=== PATIENT | male | born 1940 | race Caucasian/White ===

== ENCOUNTER 2017-07-20 08:59 | Emergency (ER) | payer MEDICARE ==
[~2017-07-20] VITALS: Ht 182.9 cm; Wt 93.0 kg
[2017-07-20 09:08] VITALS: BP 142/73; PULSE 89; RESP 16; TEMP 98.1; O2SAT 98
--- NOTE | 2017-07-20 09:31 | PD ---
HPI Chief Complaint: Complaint Time Seen by Provider: 09:14 Travel History International Travel<30 days: No Contact w/Intl Traveler<30days: No Traveled to known affect area: No History of Present Illness HPI Patient is a 77-year-old male with a history of prostate cancer status post prostate resection presents emergency department with inability to urinate since getting up this morning. Patient states he has a appointment to establish with a new urologist later this week. Denies any abdominal pain nausea vomiting diarrhea constipation. Endorses some suprapubic discomfort however. Symptoms moderate, gradually worsening, context and associated signs and symptoms as above PFSH Past Medical History Hx Anticoagulant Therapy: Yes (asa 81) Past Surgical History Narrative Surgical Prostatectomy Social History Tobacco Use: No Allergies-Medications (Allergen,Severity, Reaction): Coded Allergies: Penicillins (Verified Adverse Reaction, Severe, Nausea/Vomiting, 07/21/17) Sulfa (Sulfonamide Antibiotics) (Verified Adverse Reaction, Severe, Nausea /Vomiting, 07/21/17) Review of Systems Except as stated in HPI: all other systems reviewed are Neg Physical Exam Narrative GENERAL: Well-nourished, well-developed patient. Comfortable appearance peer SKIN: Focused skin assessment warm/dry. HEAD: Normocephalic. Atraumatic EYES: No scleral icterus. No injection or drainage. NECK: Supple, trachea midline. No JVD or lymphadenopathy. CARDIOVASCULAR: Regular rate and rhythm without murmurs, gallops, or rubs. RESPIRATORY: Breath sounds equal bilaterally. No accessory muscle use. GASTROINTESTINAL: Abdomen soft, non-tender, nondistended. No rebound no percussive tenderness. MUSCULOSKELETAL: No cyanosis, or edema. BACK: Nontender without obvious deformity. No CVA tenderness. Data Data Last Documented VS Vital Signs Date Time Temp Pulse Resp B/P (MAP) Pulse Ox O2 Delivery O2 Flow Rate FiO2 07/20/17 09:17 18 07/20/17 09:08 98.1 89 142/73 (96) 98 Orders Orders Urinalysis - C+S If Indicated (07/20/17 09:21) Urinary Catheter Management [email or web address] (07/20/17 09:21) Ed Discharge Order (07/20/17 11:28) Labs Laboratory Tests Test 07/20/17 09:30 Urine Color LIGHT-YELLOW Urine Turbidity CLEAR Urine pH 7.0 Urine Specific [place] 1.015 Urine Protein 100 mg/dL Urine Glucose (UA) NEG mg/dL Urine Ketones NEG mg/dL Urine Occult Blood MOD Urine Nitrite NEG Urine Bilirubin NEG Urine Urobilinogen LESS THAN 2.0 MG/DL Urine Leukocyte Esterase NEG Urine RBC /hpf Microscopic Urinalysis Comment CULT NOT INDICATED MDM Medical Decision Making Medical Screen Exam Complete: Yes Emergency Medical Condition: Yes Differential Diagnosis Acute urinary retention, obstructive uropathy unlikely, prostate cancer, Narrative Course Patient room to the emergency department, Buchanan catheter placed which revealed about 550 cc of urine tinged with blood. Patient states he has a history of hematuria as well. Given his history of prostate cancer and his new urinary retention the patient was offered a CAT scan of his abdomen and pelvis but after our discussion he would rather follow-up with his urologist to see exactly what they would recommend. Discussed return to ED criteria, care of his Buchanan catheter. He will be discharged with a leg bag in place. Diagnosis Primary Impression: Acute urinary retention Additional Instructions: Follow-up with your urologist on Friday as scheduled Disposition: DISCHARGE HOME Condition: Stable See Joseph MD Jul 20, 2017 09:31
[2017-07-20 09:53] LABS: BILIRUBIN, URINE NEG (NEG); BLOOD, URINE MOD (NEG); GLUCOSE,URINE NEG (NEG); KETONE, URINE NEG (NEG); NITRITE,URINE NEG (NEG); URINE COLOR LIGHT-YELLOW (YELLW/STRAW); URINE LEUKOCYTE ESTERASE NEG (NEG)
== END 2017-07-20 12:00 | disposition home or self-care (01) ==
LOC: NEPC 08:59
DX: R33.9 Retention of urine, unspecified (principal); R31.9 Hematuria, unspecified; Z85.46 Personal history of malignant neoplasm of prostate; Z79.82 Long term (current) use of aspirin
CPT/HCPCS: 51702; 81001

== ENCOUNTER 2017-07-21 08:57 | Emergency (ER) | payer MEDICARE ==
[~2017-07-21] VITALS: Ht 182.9 cm; Wt 93.0 kg
[2017-07-21 09:03] VITALS: BP 132/73; PULSE 86; RESP 16; TEMP 98.5; O2SAT 95
--- NOTE | 2017-07-21 09:43 | PD ---
HPI Chief Complaint: Complaint Time Seen by Provider: 09:19 Travel History International Travel<30 days: No Contact w/Intl Traveler<30days: No Traveled to known affect area: No History of Present Illness HPI This patient was here yesterday for urinary retention and had a Buchanan catheter placed. He did well until midnight when the catheter stopped draining. He has had occasional blood clots in the urinary bag. He has had a bit of leaking around the catheter. He feels like his bladder is full. He does have suprapubic discomfort. He has not had empty the bag this morning. Denies fever. He has history of prostate cancer and has had surgery for that. He has a urologist appointment on Friday. Symptom severity is moderate. No alleviating factors. Symptoms exacerbated by blood clots in the bag PFSH Past Medical History Hx Anticoagulant Therapy: Yes (asa 81) Depression: Yes Cancer: Yes (PROSTATE) High Cholesterol: Yes Tetanus Vaccination: < 5 Years ?: Not Past Surgical History Other Surgery: Yes (PROSTATE, HERNIA, RIGHT SHOULDER ) Social History Alcohol Use: No (EVERY OTHER WEEK) Tobacco Use: No Substance Use: No Allergies-Medications (Allergen,Severity, Reaction): Coded Allergies: Penicillins (Verified Adverse Reaction, Severe, Nausea/Vomiting, 07/21/17) Sulfa (Sulfonamide Antibiotics) (Verified Adverse Reaction, Severe, Nausea /Vomiting, 07/21/17) Review of Systems General / Constitutional: No: Fever Eyes: No: Visual changes HENT: No: Headaches Cardiovascular: No: Chest Pain or Discomfort Respiratory: No: Shortness of Breath Gastrointestinal: Positive: Abdominal Pain Genitourinary: Positive: Hematuria, No: Dysuria Musculoskeletal: No: Pain Skin: No Rash Neurologic: No: Weakness Psychiatric: No: Depression Endocrine: No: Polydipsia Hematologic/Lymphatic: No: Easy Bruising Physical Exam Narrative GENERAL: Well-nourished, well-developed patient in no apparent distress. SKIN: Focused skin assessment reveals no rash and nodules. Skin is Warm and dry. HEAD: Atraumatic. Normocephalic. EYES: Pupils equal and round. No scleral icterus. No injection or drainage. ENT: No nasal bleeding or discharge. Mucous membranes pink and moist. NECK: Trachea midline. No JVD. CARDIOVASCULAR: Regular rate and rhythm. No murmur appreciated. RESPIRATORY: No accessory muscle use. Clear to auscultation. Breath sounds equal bilaterally. GASTROINTESTINAL: Abdomen soft, non-tender, nondistended. Hepatic and splenic margins not palpable. MUSCULOSKELETAL: No obvious deformities. No clubbing. No cyanosis. No edema. There is some suprapubic tenderness and fullness. NEUROLOGICAL: Awake and alert. No obvious cranial nerve deficits. Motor grossly within normal limits. Normal speech. PSYCHIATRIC: Appropriate mood and affect; insight and judgment normal. : Catheter in position. There is some bloody urine in the bag. Data Data Last Documented VS Vital Signs Date Time Temp Pulse Resp B/P (MAP) Pulse Ox O2 Delivery O2 Flow Rate FiO2 07/21/17 09:03 98.5 86 16 132/73 (92) 95 MDM Medical Decision Making Medical Screen Exam Complete: Yes Emergency Medical Condition: Yes Medical Record Reviewed: Yes Differential Diagnosis Urinary retention, catheter malfunction, blood clot obstruction Narrative Course I have reviewed the patient's electronic medical record. Reviewed his visit from yesterday. Urinalysis showed no sign of infection Patient has a clogged catheter, likely from blood clots. We will proceed with irrigation of catheter to see if the obstruction can be removed. The catheter was irrigated out multiple times Seems to be working at this time. He does not have any suprapubic pain or distention He should call his urologist to see if they want to move that appointment up. Diagnosis Primary Impression: Obstruction of Buchanan catheter Qualified Codes: T83.091A - Other mechanical complication of indwelling urethral catheter, initial encounter Additional Impression: Hematuria Qualified Codes: R31.0 - Gross hematuria Additional Instructions: Follow-up with urology Med/Other Pt SpecificInfo: Other Disposition: 01 DISCHARGE HOME Condition: Stable Gui Ashley MD Jul 21, 2017 09:43
== END 2017-07-21 12:44 | disposition home or self-care (01) ==
LOC: NEPD 08:57
DX: T83.091A Other mechanical complication of indwelling urethral catheter, initial encounter (principal); R31.0 Gross hematuria; E78.00 Pure hypercholesterolemia, unspecified; F32.9 Major depressive disorder, single episode, unspecified; Z85.46 Personal history of malignant neoplasm of prostate
CPT/HCPCS: 99282

== ENCOUNTER 2017-07-22 16:50 | Emergency (ER) | payer MEDICARE ==
[2017-07-22 17:01] VITALS: BP 139/75; PULSE 89; RESP 16; TEMP 98.8; O2SAT 99
--- NOTE | 2017-07-22 19:17 | PD ---
HPI Chief Complaint: Complaint Time Seen by Provider: 19:08 Travel History International Travel<30 days: No Contact w/Intl Traveler<30days: No Traveled to known affect area: No History of Present Illness HPI 77-year-old male presents to the emergency department for evaluation of urinary retention. Patient was seen here 2 days ago for the same complaint. He had a Buchanan catheter placed at that time. He has an appointment with urology in the morning at 8 AM. He states around noon today, he noticed that the Buchanan catheter was blocked again. He developed pelvic pressure and pain that was severe enough to bring him to the emergency department. Denies any fever chills. No nausea or vomiting. No bowel changes. Patient has history of hematuria. No other symptoms to report. PFSH Past Medical History Hx Anticoagulant Therapy: Yes (asa 81) Depression: Yes Cancer: Yes (PROSTATE) High Cholesterol: Yes Past Surgical History Other Surgery: Yes (PROSTATE, HERNIA, RIGHT SHOULDER ) Social History Alcohol Use: No (EVERY OTHER WEEK) Tobacco Use: No Substance Use: No Allergies-Medications (Allergen,Severity, Reaction): Coded Allergies: Penicillins (Verified Adverse Reaction, Severe, Nausea/Vomiting, 07/21/17) Sulfa (Sulfonamide Antibiotics) (Verified Adverse Reaction, Severe, Nausea /Vomiting, 07/21/17) Review of Systems Except as stated in HPI: all other systems reviewed are Neg Physical Exam Narrative GENERAL: Well-nourished, well-developed elderly male patient, in no acute distress SKIN: Focused skin assessment warm/dry. HEAD: Normocephalic. EYES: No scleral icterus. No injection or drainage. NECK: Supple, trachea midline. No JVD or lymphadenopathy. CARDIOVASCULAR: Regular rate and rhythm without murmurs, gallops, or rubs. RESPIRATORY: Breath sounds equal bilaterally. No accessory muscle use. GASTROINTESTINAL: Abdomen soft, non-tender, nondistended. No guarding. No rebound tenderness. GENITOURINARY: Testes descended bilaterally without evidence of rotation. No lesions or erythema. No urethral discharge. Buchanan catheter is in place with red urinary output. MUSCULOSKELETAL: No cyanosis, or edema. BACK: Nontender without obvious deformity. No CVA tenderness. Data Data Last Documented VS Vital Signs Date Time Temp Pulse Resp B/P (MAP) Pulse Ox O2 Delivery O2 Flow Rate FiO2 07/22/17 17:01 98.8 89 16 139/75 (96) 99 MDM Medical Decision Making Medical Screen Exam Complete: Yes Emergency Medical Condition: Yes Medical Record Reviewed: Yes Differential Diagnosis Blockage versus BPH versus blood clot versus UTI Narrative Course 77-year-old male presents emergency department for evaluation of his urinary catheter being blocked. Patient appears well and without distress. Abdominal exam is benign. Buchanan is irrigated and has been draining without difficulty. Patient does have red urine. This is normal for him. He has an appointment at 8 AM with urology tomorrow morning. I discussed the patient with my attending. Patient will be discharged at this time. Diagnosis Primary Impression: Obstructed Buchanan catheter Qualified Codes: T83.091D - Other mechanical complication of indwelling urethral catheter, subsequent encounter Referrals: Urologist Patient Instructions: General Instructions, Hematuria (ED) Additional Instructions: Keep your appointment with urology tomorrow Return to the emergency department with acute worsening of symptoms Med/Other Pt SpecificInfo: No Change to Meds Disposition: 01 DISCHARGE HOME Condition: Stable Maribeth Fernandes Jul 22, 2017 19:17
== END 2017-07-22 19:48 | disposition home or self-care (01) ==
LOC: NEPD 16:50
DX: T83.091A Other mechanical complication of indwelling urethral catheter, initial encounter (principal)
CPT/HCPCS: 99282

== ENCOUNTER 2017-07-24 01:45 | Emergency (ER) | payer MEDICARE ==
[~2017-07-24] VITALS: Ht 182.9 cm; Wt 93.0 kg
[2017-07-24 01:55] VITALS: BP 122/65; PULSE 84; RESP 16; TEMP 98.4; O2SAT 96
[2017-07-24] MEDS ORDERED: LIDOCAINE 2% JELLY 30 ML TUBE TOPICAL ONE (02:45)
--- NOTE | 2017-07-24 03:01 | PD ---
HPI Chief Complaint: Complaint Time Seen by Provider: 02:01 Travel History International Travel<30 days: No Contact w/Intl Traveler<30days: No Traveled to known affect area: No History of Present Illness HPI Patient is a 77-year-old male who has prostate cancer about 2 weeks ago he started to have bleeding from his bladder emmanuel and has had clots 4 days ago the clots obstructed his urine outflow. He comes to the ER at that time and had a 16 [place] White placed and then he drained and has returned 3 consecutive nights for obstruction of his White with bleeding clots. Today he went to Dr. Gunn office who scheduled him for a retrograde cystoscopy and started him on antibiotics. Patient now returns for the fourth night in a row with obstruction of his White catheter due to clots. He has mild distention of his abdomen but no av pain, he has bright burgundy colored urine in his leg bag and it is no longer draining. Patient is taking Lupron. The main complaint is lack of draining of his burgundy colored urine obstruction of his White and now pain suprapubic mild distention pain is pressure-like it is localized to the superpubic area and it is mild PFSH Past Medical History Hx Anticoagulant Therapy: Yes (asa 81) Depression: Yes Cancer: Yes (PROSTATE) High Cholesterol: Yes Diminished Hearing: No Tetanus Vaccination: < 5 Years Influenza Vaccination: Yes Past Surgical History Other Surgery: Yes (PROSTATE, HERNIA, RIGHT SHOULDER ) Social History Alcohol Use: Yes (EVERY OTHER WEEK) Tobacco Use: No Substance Use: No Allergies-Medications (Allergen,Severity, Reaction): Coded Allergies: Penicillins (Verified Adverse Reaction, Severe, Nausea/Vomiting, 07/24/17) Sulfa (Sulfonamide Antibiotics) (Verified Adverse Reaction, Severe, Nausea /Vomiting, 07/24/17) Review of Systems Except as stated in HPI: all other systems reviewed are Neg Genitourinary: Positive: Hematuria, Decreased Urinary Output Physical Exam Narrative GENERAL: pt has mildly distended bladder SKIN: Warm and dry. HEAD: Atraumatic. Normocephalic. EYES: Pupils equal and round. No scleral icterus. No injection or drainage. ENT: No nasal bleeding or discharge. Mucous membranes pink and moist. NECK: Trachea midline. No JVD. CARDIOVASCULAR: Regular rate and rhythm. RESPIRATORY: No accessory muscle use. Clear to auscultation. Breath sounds equal bilaterally. GASTROINTESTINAL: Abdomen mild tender suprapubic tender soft, nondistended. Hepatic and splenic margins not palpable. MUSCULOSKELETAL: Extremities without clubbing, cyanosis, or edema. No obvious deformities. NEUROLOGICAL: Awake and alert. No obvious cranial nerve deficits. Motor grossly within normal limits. Five out of 5 muscle strength in the arms and legs. Normal speech. PSYCHIATRIC: Appropriate mood and affect; insight and judgment normal. We tried to irrigate throught the 16 fr white without success. I then personally changed out the white to a 20 Fr coude, I passed it without complication and good urine ( burgundy colored ) return 400 cc dranked POC US BLADDER DECOMPRESSED Data Data Last Documented VS Vital Signs Date Time Temp Pulse Resp B/P (MAP) Pulse Ox O2 Delivery O2 Flow Rate FiO2 07/24/17 04:45 07/24/17 04:21 63 18 68 18 81 18 07/24/17 01:55 98.4 96 Orders Orders Lidocaine 2% Jelly (Xylocaine 2% Jelly) (07/24/17 02:45) Orthostatic Vital Signs (07/24/17 04:02) Complete Blood Count With Diff (07/24/17 04:05) Prothrombin Time / Inr (Pt) (07/24/17 04:05) Ed Discharge Order (07/24/17 04:38) Labs Laboratory Tests Test 07/24/17 04:10 White Blood Count 7.7 TH/MM3 Red Blood Count 3.77 MIL/MM3 Hemoglobin 11.2 GM/DL Hematocrit 33.2 % Mean Corpuscular Volume 87.9 FL Mean Corpuscular Hemoglobin 29.6 PG Mean Corpuscular Hemoglobin Concent 33.7 % Red Cell Distribution Width 13.8 % Platelet Count 245 TH/MM3 Mean Platelet Volume 7.3 FL Neutrophils (%) (Auto) 53.5 % Lymphocytes (%) (Auto) 34.4 % Monocytes (%) (Auto) 9.4 % Eosinophils (%) (Auto) 2.4 % Basophils (%) (Auto) 0.3 % Neutrophils # (Auto) 4.1 TH/MM3 Lymphocytes # (Auto) 2.6 TH/MM3 Monocytes # (Auto) 0.7 TH/MM3 Eosinophils # (Auto) 0.2 TH/MM3 Basophils # (Auto) 0.0 TH/MM3 CBC Comment DIFF FINAL Differential Comment Prothrombin Time 10.7 SEC Prothromb Time International Ratio 1.1 RATIO MDM Medical Decision Making Medical Screen Exam Complete: Yes Emergency Medical Condition: Yes Differential Diagnosis Bladder bleeding with clots over white exit vs tumor vs white dislodged vs white fracture vs other Narrative Course I changes white from a 16 fr to a 20 fr and got good urine return 400 cc burgundy colored urine returns and pt feels much improved . pt is safe for Dr Mireles outpt follow up check Hgb and not significantly low and orthostatics were normal and he is d/c for outpt follow up Procedures Procedure Narrative I placed a white 20 fr into urethra with good return or urine Diagnosis Primary Impression: Hematuria Additional Impression: White catheter problem Patient Instructions: General Instructions, Hematuria (ED) Disposition: 01 DISCHARGE HOME Condition: Good Torsten Hall MD Jul 24, 2017 03:01
[2017-07-24 04:21] VITALS: BP_SYST 114; BP_SYST 119; BP_SYST 124; BP_DIAS 63; BP_DIAS 66; BP_DIAS 73; RESP 18
[2017-07-24 04:27] LABS: AUTOMATED NEUTROPHIL # 4.1 TH/MM3 (1.8-7.7); BASOPHIL % 0.3 % (0.0-2.0); EOSINOPHIL # 0.2 TH/MM3 (0-0.4); EOSINOPHIL % 2.4 % (0.0-4.0); HEMATOCRIT 33.2 % (39.0-51.0); HEMOGLOBIN 11.2 GM/DL (13.0-17.0); LYMPH % 34.4 % (9.0-44.0); LYMPHOCYTE # 2.6 TH/MM3 (1.0-4.8); MEAN CELL VOLUME 87.9 FL (80.0-100.0); MEAN CORPUSCULAR HEMOGLOBIN 29.6 PG (27.0-34.0); MEAN CORPUSCULAR HGB CONC 33.7 % (32.0-36.0); MEAN PLATELET VOLUME 7.3 FL (7.0-11.0); MONO % 9.4 % (0.0-8.0); MONOCYTE # 0.7 TH/MM3 (0-0.9); NEUT % 53.5 % (16.0-70.0); PLATELET COUNT 245 TH/MM3 (150-450); RED BLOOD COUNT 3.77 MIL/MM3 (4.50-5.90); RED CELL DISTRIBUTION WIDTH 13.8 % (11.6-17.2); WHITE BLOOD COUNT 7.7 TH/MM3 (4.0-11.0)
[2017-07-24 04:36] LABS: INTERNATIONAL NORMALIZED RATIO 1.1 RATIO; PROTHROMBIN TIME - PATIENT 10.7 SEC (9.8-11.6)
== END 2017-07-24 04:45 | disposition home or self-care (01) ==
LOC: NEPC 01:45
DX: R31.9 Hematuria, unspecified (principal); T83.9XXA Unspecified complication of genitourinary prosthetic device, implant and graft, initial encounter; C61 Malignant neoplasm of prostate; F32.9 Major depressive disorder, single episode, unspecified; E78.00 Pure hypercholesterolemia, unspecified; Z88.0 Allergy status to penicillin; Z88.2 Allergy status to sulfonamides
CPT/HCPCS: 51703; 85025; 85610

== ENCOUNTER 2017-07-24 14:13 | Emergency (ER) | payer MEDICARE ==
[2017-07-24 14:30] VITALS: BP 130/74; PULSE 90; RESP 20; TEMP 98.6; O2SAT 96
--- NOTE | 2017-07-24 15:16 | PD ---
HPI . 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 He has a history of bladder cancer and has recently been passing clots. This is actually his fifth visit here for urinary obstruction since 07/20. Most recently, less than 12 hours ago, his 16 Austrian Jeong was removed and replaced with a 20 Austrian Jeong. Spite that, he reports the passage of very little urine since that time. He does not believe that he has passed anything since 6 AM. He is complaining with bladder fullness. Symptom onset was 07/20 Progression is continuous Context is history of bladder cancer Associated symptom is the sensation of bladder fullness PFSH Past Medical History Hx Anticoagulant Therapy: Yes (asa 81) Depression: Yes Cancer: Yes (PROSTATE) High Cholesterol: Yes Diminished Hearing: No ?: Not Past Surgical History Other Surgery: Yes (PROSTATE, HERNIA, RIGHT SHOULDER ) Social History Alcohol Use: Yes (EVERY OTHER WEEK) Tobacco Use: No Substance Use: No Allergies-Medications (Allergen,Severity, Reaction): Coded Allergies: Penicillins (Verified Adverse Reaction, Severe, Nausea/Vomiting, 07/24/17) Sulfa (Sulfonamide Antibiotics) (Verified Adverse Reaction, Severe, Nausea /Vomiting, 07/24/17) Review of Systems Except as stated in HPI: all other systems reviewed are Neg Physical Exam Narrative GENERAL: Awake and alert and in no acute distress. SKIN: Warm and dry. HEAD: Normocephalic/atraumatic. EYES: Pupils are equal. Extraocular movements are intact. NECK: Normal range of motion. CARDIOVASCULAR: Regular rate and rhythm. RESPIRATORY: Nonlabored respirations. ABDOMEN: Uncomfortable in the suprapubic area. I would not really call it tenderness. : Jeong catheter in place. Scant, bloody urine in the collection bag. He is leaking blood from the urethral meatus. MUSCULOSKELETAL: Atraumatic. NEUROLOGICAL: Nonfocal. PSYCHIATRIC: Appropriate mood and affect. Data Data Last Documented VS Vital Signs Date Time Temp Pulse Resp B/P (MAP) Pulse Ox O2 Delivery O2 Flow Rate FiO2 07/24/17 14:30 98.6 90 20 130/74 (92) 96 Orders Orders Bladder/Catheter Irrigation (07/24/17 14:54) Cath, Jeong 24f 30cc 3way Ea (07/24/17 15:25) Bladder/Catheter Irrigation (07/24/17 15:25) Lidocaine 2% Jelly (Xylocaine 2% Jelly) (07/24/17 16:15) MDM Medical Decision Making Medical Screen Exam Complete: Yes Emergency Medical Condition: Yes Differential Diagnosis Final differential diagnosis of urinary symptoms includes but is not limited to UTI, kidney stone, pyelonephritis, bacterial vaginosis, yeast infection, urinary retention Narrative Course This patient presents with a chief complaint of obstruction of his Jeong catheter by blood clots. He has a history of bladder cancer which makes him bleed this is his fifth visit since 07/20 for same. I will call his urologist for further recommendations. The nurses did irrigate the 20 Austrian Jeong with good clearance of the clots. He now has no appreciable urine in his bladder based on bladder scan. The nursing staff was unable to insert the 24 Austrian three-way Jeong. The plan now is to irrigate his bladder until urine is flowing freely. Dr. Mireles does not feel that he will need to be admitted to the hospital. Procedures Procedure Narrative JEONG CATHETER INSERTION Indication is acute urinary retention secondary to blood clots. I injected his urethra with lidocaine jelly. I then attempted a 24 Austrian three -way Jeong catheter. I was unable to get past the prostate. I was then able to successfully insert a 22 Austrian three-way Jeong catheter. He tolerated it well without complication. Physician Communication Physician Communication Dr. Mireles recommended replacement of his 20 Austrian Jeong with a 20 Austrian three- way Jeong with irrigation until his urine is flowing well. Diagnosis Primary Impression: Jeong catheter problem Qualified Codes: T83.9XXA - Unspecified complication of genitourinary prosthetic device, implant and graft, initial encounter Additional Impressions: Hematuria Qualified Codes: R31.0 - Gross hematuria Urinary retention Disposition: 01 DISCHARGE HOME Condition: Stable Gisela Castañeda MD Jul 24, 2017 15:16
[2017-07-24] MEDS ORDERED: LIDOCAINE 2% JELLY 30 ML TUBE TOPICAL ONE (16:15)
--- NOTE | 2017-07-24 17:52 | PD ---
Data Data Last Documented VS Vital Signs Date Time Temp Pulse Resp B/P (MAP) Pulse Ox O2 Delivery O2 Flow Rate FiO2 07/24/17 14:30 98.6 90 20 130/74 (92) 96 Orders Orders Bladder/Catheter Irrigation (07/24/17 14:54) Cath, Buchanan 24f 30cc 3way Ea (07/24/17 15:25) Bladder/Catheter Irrigation (07/24/17 15:25) Lidocaine 2% Jelly (Xylocaine 2% Jelly) (07/24/17 16:15) Ed Discharge Order (07/24/17 17:56) MDM Supervised Visit with SRIDHAR: No Narrative Course Patient CARE assume from Dr. Castañeda at 1700, I was asked to reassess this patient after irrigating the bladder, discharge the patient with Buchanan catheter in place. Patient known to me from previous visit. Has a history of bladder cancer and prostatectomy on Lupron. After 3 L of normal saline by irrigation the patient's urine is completely clear. He has no further complaints, stable for discharge Diagnosis Primary Impression: Buchanan catheter problem Qualified Codes: T83.9XXA - Unspecified complication of genitourinary prosthetic device, implant and graft, initial encounter Additional Impressions: Urinary retention Hematuria Qualified Codes: R31.0 - Gross hematuria Referrals: Nawaf Mireles MD Additional Instruction: Follow-up with your urologist or Dr. Mireles by phone tomorrow for an appointment next week peer Disposition: 01 DISCHARGE HOME Condition: Stable See Joseph MD Jul 24, 2017 17:51
== END 2017-07-24 18:44 | disposition home or self-care (01) ==
LOC: NEPD 14:13
DX: T83.9XXA Unspecified complication of genitourinary prosthetic device, implant and graft, initial encounter (principal); R33.9 Retention of urine, unspecified; R31.9 Hematuria, unspecified; F32.9 Major depressive disorder, single episode, unspecified; E78.00 Pure hypercholesterolemia, unspecified; Z85.51 Personal history of malignant neoplasm of bladder; Z88.0 Allergy status to penicillin; Z88.2 Allergy status to sulfonamides
CPT/HCPCS: 51702

== ENCOUNTER 2017-07-29 19:33 | Emergency (ER) | payer MEDICARE ==
[~2017-07-29] VITALS: Ht 182.9 cm; Wt 92.0 kg
[2017-07-29 19:48] VITALS: BP 126/71; PULSE 89; RESP 18; TEMP 98.6; O2SAT 97
--- NOTE | 2017-07-29 20:17 | PD ---
HPI Chief Complaint: Complaint Time Seen by Provider: 20:00 Travel History International Travel<30 days: No Contact w/Intl Traveler<30days: No Traveled to known affect area: No History of Present Illness HPI 77yo M with PMH of prostate CA s/p prostatectomy and radiation therapy on lupron presents to the ED with complaint that his white stopped draining at 2pm today. Pt said he had cystoscopy at 9am and they flushed out blood clots and place a new white. Said it stopped draining at 2pm. Called his urology office at 6pm but they were close so came to ED. Denies any fever, chest pain, sob, n/ v, abdominal pain, focal weakness or numbness. Pt has been taking antibiotics for UTI. PFSH Past Medical History Hx Anticoagulant Therapy: Yes (asa 81) Depression: Yes Cancer: Yes (PROSTATE) High Cholesterol: Yes Diminished Hearing: No Tetanus Vaccination: Unknown Influenza Vaccination: Yes Past Surgical History Gynecologic Surgery: Yes (cyscoscopy) Other Surgery: Yes (PROSTATE, HERNIA, RIGHT SHOULDER ) Social History Alcohol Use: Yes (EVERY OTHER WEEK) Tobacco Use: No Substance Use: No Allergies-Medications (Allergen,Severity, Reaction): Coded Allergies: ciprofloxacin (Verified Allergy, Severe, 07/29/17) Penicillins (Verified Adverse Reaction, Severe, Nausea/Vomiting, 07/29/17) Sulfa (Sulfonamide Antibiotics) (Verified Adverse Reaction, Severe, Nausea /Vomiting, 07/29/17) Review of Systems Except as stated in HPI: all other systems reviewed are Neg Physical Exam Narrative GENERAL: 77yo M not in distress. SKIN: Focused skin assessment warm/dry. HEAD: Atraumatic. Normocephalic. EYES: Pupils equal and round. No scleral icterus. No injection or drainage. ENT: No nasal bleeding or discharge. Mucous membranes pink and moist. NECK: Trachea midline. No JVD. CARDIOVASCULAR: Regular rate and rhythm. No murmur appreciated. RESPIRATORY: No accessory muscle use. Clear to auscultation. Breath sounds equal bilaterally. GASTROINTESTINAL: Abdomen soft, non-tender, nondistended. No rebound tenderness or guarding. : White catheter in place, draining 150cc of urine with gross hematuria. MUSCULOSKELETAL: No obvious deformities. No clubbing. No cyanosis. No edema. NEUROLOGICAL: Awake and alert. No obvious cranial nerve deficits. Motor grossly within normal limits. Normal speech. PSYCHIATRIC: Appropriate mood and affect; insight and judgment normal. Data Data Last Documented VS Vital Signs Date Time Temp Pulse Resp B/P (MAP) Pulse Ox O2 Delivery O2 Flow Rate FiO2 07/29/17 19:48 98.6 89 18 126/71 (89) 97 Orders Orders Bladder/Catheter Irrigation (07/29/17 20:17) MDM Medical Decision Making Medical Screen Exam Complete: Yes Emergency Medical Condition: Yes Differential Diagnosis White malfunction Narrative Course 77yo M with prostate CA here with complaint that his white stopped draining urine at 2pm today. Pt has no abdominal pain or any complaints besides this. On examination, there was 150cc of urine in the white bag and he said that it actually started draining now and that this urine was after 2pm today. Will flush the white for any blood clots and make sure urine is draining well. We were able to flush a few blood clots and now the white is draining well. Pt feels better and still has no abdominal pain. Will have pt follow up with his urologist and return if symptoms return. Diagnosis Primary Impression: White catheter problem Qualified Codes: T83.9XXA - Unspecified complication of genitourinary prosthetic device, implant and graft, initial encounter Patient Instructions: General Instructions Departure Forms: Tests/Procedures Additional Instructions: Please follow up with your urologist in 1-2 days. Return to the ED if you have abdominal pain, fever, nausea, vomiting, white stopped draining or any other concerning symptoms. Med/Other Pt SpecificInfo: No Change to Meds Disposition: 01 DISCHARGE HOME Condition: Stable Purnima Gamboa DO July 29, 2017 20:17
== END 2017-07-29 22:31 | disposition home or self-care (01) ==
LOC: NEPD 19:33
DX: T83.9XXA Unspecified complication of genitourinary prosthetic device, implant and graft, initial encounter (principal); Z85.46 Personal history of malignant neoplasm of prostate
CPT/HCPCS: 99283